=== PATIENT | male | born 1985 | race Caucasian/White ===

== ENCOUNTER 2019-10-31 21:27 | Emergency (ER) | payer SELFPAY ==
[2019-10-31 21:31] VITALS: BP 139/87; PULSE 115; RESP 18; TEMP 37.6; O2SAT 99
--- NOTE | 2019-10-31 21:35 | ED.GENADUL_ITS ---
Discharge Plan Disposition Patient Disposition: AGAINST MEDICAL ADVICE Condition: Stable Discharge Details Chief Complaint: Orthopedic Clinical Impression: Closed fracture of right clavicle Primary Care Provider: Brenna,Local ED Provider: Libby De La Cruz Home Meds and New Rx's Prescriptions: No Action No Known Home Meds RF: 0 Discharge Data Discharge Date/Time-TO BE ENTERED AT DEPARTURE: 10/31/19 22:15 Medical Decision Making Patient is a 33 year old RHD male presenting today with c/c of rightshoulder pain. STates that 2-3 hours prior to arrival he was working in his duck coop when he slipped and fell landing on the posterior aspect of his right shoulder. Believes that he may have struck his head but is unclear, denies LOPEZ. States that he did vomit x 1 after fall but attributes to right should pain. Unclear if he lost consciousness. Denies neck/back pain. No numbness, tingling or weakness in RUE. Shortly after, noted swelling and ecchymosis midshaft clavicle. States that bone was sticking out prompting him to seek care. On exam, patient appears anxious and guarded. His initial story of being unclear if he struck his head or loss consciousness had me initially fixate on the patient's neurologic status as well as his neck which did seem to anger him. He only wanted me to be able to focus my efforts on his clavicle where his primary source of discomfort is. I did discuss my concerns with the patient and the seem to agitate him further. I was able to do a head and neck exam did not see any evidence of trauma. He has no midline tenderness, full range of motion, no step-off deformity. I see no obvious deformity of the head. He is following commands well, the neurological exam the patient was willing to perform, although limited, was intact. Patient does have notable deformity over the midshaft clavicle consistent with fracture. He does have swelling and ecchymosis over this area. I see no evidence of nerve injury on exam. He has no tenting of the skin. He does have good range of motion of elbow, wrist, hand. Patient does smell of alcohol although he is speaking clearly and does not have any evidence of acute intoxication. Patient also smells of marijuana. He does state that he smokes marijuana and drinks alcohol daily. Denied other drug use. Discussed obtaining x-ray, patient is even hesitant to do this. However, after discussing my concern for fracture, he was agreeable. X-ray was obtained and reviewed by myself showing a bayoneted fracture of the midshaft clavicle consistent with that I am palpating on exam. However, as soon as the patient came back from the x-ray department he eloped. I did try to advise the patient on what I was seeing on quick exam of his x-ray. He does not want to stay for further treatment. I did advise immobilization and follow-up with orthopedics which she is refusing. He will not stay any longer. Patient does seem to have clear thought content and does not appear to be acutely intoxicated. Seems that he is able to make his own decisions. A friend did drive him here. Patient eloped from the department without further care. HPI General Mode of arrival: ambulatory . Date/Time Provider Initiated Documentation: 10/31/19 21:35 . Limitations to Documentation: no limitations . Information obtained by: patient and RN notes reviewed . History of Present Illness 33 year old M presents to the emergency department with the chief complaint of right clavicular pain, described as severe, with intensity rated at 10. Quality is described as aching, and is localized to the right and upper extremity. Patient reports no radiation. Patient started experiencing this hour(s) (3) and it has been constant. Immobilization i mproves symptom(s), Movement worsens symptoms . Patient notes no other symptoms.. Patient did receive the following treatments prior to arrival, none Related Data Home Medications Medication Instructions Recorded Confirmed Unknown [No Known Home Meds] 10/31/19 10/31/19 Allergies Allergy/AdvReac Type Severity Reaction Status Date / Time No Known Allergies Allergy Unverified 10/31/19 21:35 General Stated Complaint: Orthopedic CLINT: 3 Review of Systems Constitutional Constitutional: Reports as per HPI, Denies chills, Denies fever(s), Denies headache(s) and Denies weakness Eyes Eyes: Denies change in vision and Denies diplopia ENT Ears, Nose, Mouth, and Throat: Denies headache(s) and Denies neck pain Cardiovascular Cardiovascular: Reports as per HPI, Denies chest pain, Denies chest pain at rest, Denies chest pain with activity and Denies dyspnea Respiratory Respiratory: Reports as per HPI, Denies cough, Denies hemoptysis, Denies pain on inspiration and Denies dyspnea Gastrointestinal Gastrointestinal: Reports vomiting (x1 after initial injury, associated with pain) Musculoskeletal Musculoskeletal: Reports as per HPI, Denies back pain, Reports deformity (midshaft right clavicle), Reports limited range of motion (pain with ROM of right shoulder), Denies muscle cramps, Denies muscle weakness, Denies neck pain, Denies numbness, Denies radiating pain into limb and Denies tingling Integumentary/Breasts Skin/Breast: Reports as per HPI, Denies rash and Denies wounds Neurologic Neurologic: Reports as per HPI, Denies headache(s), Denies numbness, Denies tingling, Denies paresthesias and Denies weakness [facility] Social History Smoking/Tobacco Use Status: Current every day Tobacco Type: cigarettes Alcohol Intake: current Alcohol Intake frequency: 3 or more drinks per day Drug use: Daily Substance use type: marijuana Do you feel safe at home: Yes Do you feel safe in your relationship?: Yes Exam Const General: cooperative, healthy appearing, comfortable, no acute distress, well developed and well groomed Nutritional Appearance: average body habitus and well nourished Orientation: alert and awake [facility] Head: normal to inspection, no palpable skull fracture, normocephalic, atraumatic, no Dickinson's sign, no contusions, no hematomas, no palpable skull fracture and no raccoon eyes Ears: hearing grossly normal bilaterally, external ears normal and TM's normal bilaterally General nose exam: external nose normal Face and sinus: normal facial exam Mouth: oral mucosae normal and lip normal Eyes General: appearance normal, both eyes and all related structures Pupils: PERRL EOM: EOM intact bilaterally Neck Neck: normal visual inspection, full ROM, no lymphadenopathy, no meningeal signs, trachea midline, supple and no anterior neck swelling Chest Chest: normal inspection of the chest, normal palpation of entire chest wall, no localized rib tenderness and no tenderness Resp Effort & Inspection: normal respiratory effort, able to speak in complete sentences and no respiratory distress Auscultation: clear to auscultation bilaterally Cardio Rate: regular rate Rhythm: regular rhythm Heart Sounds: S1 normal and S2 normal Back/Spine/Pelvis Cervical Spine: normal cervical lordosis and cervical ROM normal Thoracic/Lumbar Spine: thoracic and lumbar spine normal to inspection, thoraco- lumbar ROM normal, No paraspinal tenderness, No thoracic spinal tenderness and No lumbar spinal tenderness Skin General skin exam: ecchymosis (Over right midshaft clavicle) Neuro General: patient alert and patient awake Cognition: normal cognition Speech: speech normal Gait: normal gait Motor: muscle tone normal throughout Sensory Exam: no sensory deficits noted Extrem Right upper extremity: normal capillary refill, shoulder/upper arm Details: abnormal to inspection Details: clavicle deformity (Midshaft palpable clavicular deformity with swelling and ecchymosis, no tenting), tenderness Location: of the clavicle Laterality: mid-shaft, swelling Location: of the clavicle Location: mid-shaft, axillary nerve sensory function normal, ecchymosis and deformity Location: of the clavicle Location: mid-shaft; ROM limited (Limited range of motion of the shoulder secondary to pain midshaft clavicle), no abrasions, no lacerations, no crepitus, no foreign bodies and no penetrating wound, elbow/forearm Details: normal to inspection and normal ROM; no tenderness, no swelling, no lacerations, no ecchymosis, no crepitus and no deformity, wrist (5 out of 5 strength with extension, flexion) Details: normal to inspection, normal ROM, normal vascular exam and radial pulse present; no tenderness, no swelling, no unusual warmth, no abrasions, no lacerations, no ecchymosis, no crepitus and no deformity and hand (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, 5 out of 5 abduction of fingers) Details: normal to inspection, normal capillary refill, neuromotor exam normal, neurosensory exam normal, tendon exam normal, vascular exam Details: radial pulse present and normal capillary refill and normal ROM of fingers; no tenderness, no unusual warmth, no swelling, no lacerations, no ecchymosis and no crepitus; abnormal to inspection, ROM limited and joint enlargement noted Psych Appearance: grossly normal and well kempt Mental Status: mental status grossly normal Speech and Movement: agitated, speech clear and restless Mood: irritable mood Affect: blunted Attitude: guarded Thought Process: normal Thought Content: normal Course Vital Signs Vital signs: Vital Signs Temperature 37.6 C H 10/31/19 21:31 Pulse 115 H 10/31/19 21:31 Respiratory Rate 18 10/31/19 21:31 Blood Pressure 139/87 10/31/19 21:31 Pulse Oximetry 99 10/31/19 21:31 Temperature 37.6 C H 10/31/19 21:31 Temperature Source Skin 10/31/19 21:31 Pulse 115 H 10/31/19 21:31 Respiratory Rate 18 10/31/19 21:31 Blood Pressure 139/87 10/31/19 21:31 Blood Pressure Position Sitting 10/31/19 21:31 Pulse Oximetry 99 10/31/19 21:31 Oxygen Delivery Method Room Air 10/31/19 21:31 Oxygen Flow Rate 0 10/31/19 21:31 Pain Level 10 10/31/19 21:31
--- NOTE | 2019-10-31 21:45 | DI.RAD_ITS ---
EXAM: XR CLAVICLE RT CLINICAL HISTORY: fall TECHNIQUE: 2D digital imaging was performed. COMPARISON: No exams were available for comparison FINDINGS: BONES: Mildly comminuted fracture of the midshaft of the right clavicle. The distal fracture is disp laced 1 shaft's width inferiorly. There is overriding of the fracture fragments. No bony destructiv e lesion is seen. JOINTS: No dislocation present. SOFT TISSUE: Normal IMPRESSION: Acute mildly comminuted overriding fracture of the midshaft of the right clavicle. DATA REPOSITORY: RADIATION DOSE DELIVERED:
--- NOTE | 2019-10-31 22:20 | DI.VRAD_ITS ---
PROCEDURE INFORMATION: Exam: XR Right Clavicle, Complete Exam date and time: 10/31/2019 22:10 Age: 33 years old Clinical indication: Other: Fall TECHNIQUE: Imaging protocol: XR Right clavicle complete. Any number of views. COMPARISON: No relevant prior studies available. FINDINGS: Bones/joints: Acute fracture of the mid right clavicular diaphysis with 1 shaft with inferior displacement distally and approximately 2 cm override. Mild comminution. Acromioclavicular and glenohumeral alignment appear preserved Soft tissues: Surrounding swelling. IMPRESSION: Acute angulated and overriding right clavicular diaphysis fracture. Dictated and Authenticated by: Svetlana Gorman MD. Ordering:LULU Souza MD
== END 2019-10-31 22:15 | disposition left against medical advice (07) ==
LOC: ER 21:54
PROVIDERS: Emergency Provider Physician Assistant
DX: S42.021A Displaced fracture of shaft of right clavicle, initial encounter for closed fracture (principal); W18.39XA Other fall on same level, initial encounter; Z53.29 Procedure and treatment not carried out because of patient's decision for other reasons
CPT/HCPCS: 99284; 73000; 99282